=== PATIENT | male | born 1970 | race American Indian/Alaskan Native ===

== ENCOUNTER 2016-07-24 23:09 | Emergency (ER) | payer SELFPAY ==
[2016-07-24] MEDS ORDERED: NORVASC ONE (23:31)
[2016-07-24] MEDS: NORVASC PO ONE (23:39)
[2016-07-24 23:44] LABS: Basophils % (Auto) 0.6 % (0.0-1.8); Eosinophils % (Auto) 1.1 % (0.0-4.3); Hematocrit 38.4 % (35.5-45.6); Hemoglobin 12.5 gm/dl (11.8-15.2); Mean Corpuscular HGB Conc 33 % (32-34); Mean Corpuscular Hemoglobin 30 pg (28-32); Mean Corpuscular Volume 93 fl (84-94); Platelet Count 236 K/mm3 (140-440); Red Blood Count 4.15 M/mm3 (3.65-5.03); Red Cell Distribution Width 14.6 % (13.2-15.2); White Blood Count 8.8 K/mm3 (4.5-11.0)
[2016-07-25 00:10] LABS: Creatine Kinase MB 3.6 ng/mL (0.0-4.0)
[2016-07-25 00:11] LABS: Anion Gap 22 mmol/L; BUN/Creatinine Ratio 7.77; Blood Urea Nitrogen 7 mg/dL (9-20); Calcium 9.6 mg/dL (8.4-10.2); Carbon Dioxide 23 mmol/L (22-30); Chloride 98.8 mmol/L (98-107); Glucose 155 mg/dL (75-100); Potassium 3.7 mmol/L (3.6-5.0); Sodium 140 mmol/L (137-145)
[2016-07-25 00:43] VITALS: BP 175/109
--- NOTE | 2016-07-26 01:35 | ED Elopement Review ---
ED Pt Elopement review - Results review Lab results: Laboratory Tests 07/24/16 07/24/16 07/24/16 23:18 23:30 23:30 WBC 8.8 RBC 4.15 Hgb 12.5 Hct 38.4 MCV 93 MCH 30 MCHC 33 RDW 14.6 Plt Count 236 Lymph % (Auto) 21.1 Ocean % (Auto) 5.8 Eos % (Auto) 1.1 Baso % (Auto) 0.6 Lymph # 1.9 Ocean # 0.5 Eos # 0.1 Baso # 0.1 Seg Neutrophils % 71.4 H Seg Neutrophils # 6.3 Sodium 140 Potassium 3.7 Chloride 98.8 Carbon Dioxide 23 Anion Gap 22 BUN 7 L Creatinine 0.9 Estimated GFR > 60 BUN/Creatinine Ratio 7.77 Glucose 155 H Calcium 9.6 Total Creatine Kinase 502 H CK-MB (CK-2) 3.6 CK-MB (CK-2) Rel Index 0.7 Troponin T < 0.010 NT-Pro-B Natriuret Pep 16.93 - Call Back decision Pt Call Back Decision: Pt to F/U with PMD (elevated blood pressure needs treatment and reevaluated here may return for eval if symptoms continue)
== END 2016-07-24 23:31 | disposition left against medical advice (07) ==
LOC: ED 23:09
DX: R07.89 Other chest pain (principal); Z53.21 Procedure and treatment not carried out due to patient leaving prior to being seen by health care provider
CPT/HCPCS: 36415; 80048; 82550; 82553; 83880; 84484; 85025; 93005; 93010